=== PATIENT | female | born 1955 | race Two or more races ===

== ENCOUNTER 2019-09-20 07:57 | Day surgery (SDC) | payer OTHER ==
[~2019-09-20] VITALS: Ht 157.5 cm; Wt 57.1 kg
[2019-09-20 08:08] VITALS: BP 147/83
[2019-09-20 18:15] VITALS: BP 146/84
== END 2019-09-20 18:45 | disposition home or self-care (01) ==
LOC: DS 07:57 → OR 12:30 → DS 13:00
DX: C50.412 Malignant neoplasm of upper-outer quadrant of left female breast (principal); E11.9 Type 2 diabetes mellitus without complications; Z79.84 Long term (current) use of oral hypoglycemic drugs; Z79.899 Other long term (current) drug therapy; Z98.890 Other specified postprocedural states; Z17.0 Estrogen receptor positive status [ER+]
CPT/HCPCS: 76641; 82962; 88329; 88344; 88361; J0690; J1170; J2001; J2175; J2250; J2405; J3010; J3490; J7030; Q0092; Q9968